=== PATIENT | female | born 2000 | race Caucasian/White ===

== ENCOUNTER 2022-12-16 06:51 | Outpatient (CLI) | payer OTHER ==
[~2022-12-16] VITALS: Ht 147.3 cm; Wt 90.9 kg
[2022-12-16 07:10] VITALS: BP 135/61; PULSE 89; TEMP 98.1
--- NOTE | 2022-12-16 07:42 | NUR ---
0720 PATIENT HERE FOR A VERSION. DISCUSS PROCEDURE WITH PATIENT AND NO QUESTIONS AT THIS TIME. IV STARTED IN LEFT HAND. PATIENT TOLERATES WELL. EFM ON FHT 130 BABY ACTIVE. ONE CONTRACTION ON MONITOR BUT NOT FELT BY PATIENT. 0730 DR CIFUENTES AT BEDSIDE. TALKS WITH BOTH PATIENT AND . NO QUESTIONS. SONO FOR POSITION. BABY IS COMFIRMED BREECH. BRETHINE 0.125 IV GIVEN AND FLUSHED ORDERS BY DR CIFUENTES. 0732 VERSION ATTEMPTED AT THIS TIME BY DR CIFUENTES. NOT SUCCESSFEUL. PATIENT BREATHS THROUGH IT WELL. 0735 ATTEMPT VERSION AGAIN WITH SUCCESS. COMFIRMED WITH SONO.FHT 130 GOOD ACCELERATIONS. BABY VERY ACTIVE. PATIENT RESTING. DENIES NEEDS
[2022-12-16 08:10] VITALS: BP 102/55; PULSE 81
--- NOTE | 2022-12-16 08:30 | NUR ---
0820 PATIENT IS RESTING. DENIES NEEDS. NO CONTRACTIONS NOTED OR FELT. FHT 130 GOOD ACCELS. BABY VERY ACTIVE. WILL WORK ON DISCHARGE INSTRUCTIONS.
[2022-12-16 08:44] VITALS: BP 101/57; PULSE 82
--- NOTE | 2022-12-16 08:45 | NUR ---
0864 ALL DISCHARGE INSTRUCTIONS GIVEN TO PATIENT AND . DENIES NEEDS HOME TO REST
== END 2022-12-16 08:51 | disposition home or self-care (01) ==
LOC: LDRO 06:51 → LDR 06:51 → OB 07:41 → LDRO 08:51 → OB 14:41
DX: O26.893 Other specified pregnancy related conditions, third trimester (principal); Z3A.36 36 weeks gestation of pregnancy
CPT/HCPCS: OP; J3105

== ENCOUNTER 2023-01-05 22:30 | Inpatient (IN) | payer OTHER ==
[~2023-01-05] VITALS: Ht 147.3 cm; Wt 98.2 kg
--- NOTE | 2023-01-05 22:45 | NUR ---
2245 G1L0 39.4 WEEK GEST ADM TO LR4 WITH C/O SROM AT 1535 TODAY. LEAKING LARGE AMOUNT OF CLEAR FLUID. EFM ON. SVE /-3 WITH POSITIVE AMNIOTRACE. ADM ASSESSMENT DONE. 2319 DR HARRISON NOTIFIED AND ADM ORDERS GIVEN.
[2023-01-05] MEDS ORDERED: PRENATAL TABLET PO (22:53)
[2023-01-05] MEDS ORDERED: NATURAL IRON65 MG PO (22:54)
[2023-01-05 23:00] VITALS: BP 136/82; PULSE 93; TEMP 98.2
[2023-01-05 23:50] VITALS: BP 130/68; PULSE 85
--- NOTE | 2023-01-05 23:50 | NUR ---
2350 IV STARTED AND LABS DRAWN. ADM CONSENTS SIGNED.
[2023-01-06] VITALS (65 sets, daily range): BP systolic 91–140; BP diastolic 50–95; PULSE 62–120; TEMP 97.3–98.9
[2023-01-06 00:20] LABS: BASO % 0.3 % (0.0-2.0); EOS # 0.2 K/mm3 (0.0-0.7); EOS % 1.3 % (0.0-4.0); GRAN # 10.8 K/mm3 (1.4-6.5); GRAN % 78.7 % (42.2-75.2); HEMATOCRIT 33.8 % (37.0-47.0); HEMOGLOBIN 10.9 g/dl (12.5-16.0); LYMPH # 1.6 K/mm3 (1.2-3.4); LYMPH % 11.9 % (20.0-51.0); MEAN CELL VOLUME 81 fl (80.0-100.0); MEAN CORPUSCULAR HEMOGLOBIN 26 pg (27-31); MEAN CORPUSCULAR HGB CONC 32 g/dl (33.0-37.0); MEAN PLATELET VOLUME 11.6 fl (7.4-10.4); MONO # 0.9 K/mm3 (0.1-0.6); MONO % 6.6 % (1.7-9.3); PLATELET COUNT 269 K/mm3 (130-400); RED BLOOD COUNT 4.15 M/mm3 (4.10-5.30); REDCELL DISTRIBUTION WIDTH-CV 15.9 % (11.5-14.5)
[2023-01-06 00:26] LABS: ALBUMIN 2.5 gm/dL (3.5-5.0); BILIRUBIN,TOTAL 0.4 mg/dL (0.2-1.2); CALCIUM 9.2 mg/dL (8.4-10.2); CREATININE, serum 0.65 mg/dL (0.57-1.11); POTASSIUM 4.2 mmol/L (3.5-4.5); TOTAL PROTEIN 6.7 gm/dL (6.2-8.1)
--- NOTE | 2023-01-06 01:00 | NUR ---
IV to INT off monitor to get up and move around.
--- NOTE | 2023-01-06 05:00 | NUR ---
tearful with contractions, loving and attentive at bedside.
--- NOTE | 2023-01-06 05:30 | NUR ---
Up to bathroom. 0540 SVE with minimal change noted. Review Pitocin augmentation and amount of time SROM. Pt and spouse verbalize understanding and agree to Pitocin augmentation.
--- NOTE | 2023-01-06 07:00 | NUR ---
DR. CIFUENTES AT BEDSIDE TO CHECK ON PT. PT DECLINES A SVE AT THIS TIME. ALL QUESTIONS ANSWERED. WILL CONTINUE WITH PLAN OF CARE.
--- NOTE | 2023-01-06 10:09 | NUR ---
PT IS LAYING ON RL POSTION ON BED FOR PLACEMENT OF EPIDURAL D/T DISCOMFORT SITTING IN UPRIGHT POSTION. PHYSICIAN GYNECOLOGIST AT BEDSIDE. EFM AND TOCO TRACING INTERMITTENTLY DUE TO MATERNAL POSITIONING. PULSE OX APPLIED TO TRACE MATERNAL HR. BP CYCLING Q 5MINS. TEST DOSE AT 1009. PT REPORTS IMPROVEMENT IN PAIN CONTROL. VITALS WNL AT THIS TIME. RN REMAINS AT BEDSIDE. WILL CONTINUE WITH PLAN ON CARE.
--- NOTE | 2023-01-06 13:25 | NUR ---
[id number] EFM AND TOCO TRACING INTERMITTENTLY DUE TO MATERNAL POSITIONING. MOTHER PLACED INTO FORWARD LEANING INVERSION AND THEN ON RIGHT SIDE FLYING COWGIRL WITH PEANUT BALL. RN AT BEDSIDE ADJUSTING MONITORS NEEDED.
--- NOTE | 2023-01-06 16:10 | NUR ---
DR. CIFUENTES AT BEDSIDE. SVE: /-2. MD EDUCATES PT ON FAILURE TO PROGRESS AND TRANSITIONING PLAN OF CARE TO DELIVERY. PT IS IN AGREEMENT AND ALL QUESTIONS ANSWERED.
--- NOTE | 2023-01-06 16:47 | NUR ---
PT TO OR FOR PRIMARY C/S DUE TO FAILURE TO PROGRESS. 1647, VACUUM USED TO EXTRACT DURING , ONE POP OFF NOTED, BODY DELIVERY AT 1647 OF VIABLE FEMALE . CARE OF TRANSFERED TO NURSERY RN AND CORD GASES OBTAINED.
[2023-01-07 00:30] VITALS: BP 121/58; PULSE 95; TEMP 98.4
[2023-01-07 04:30] VITALS: BP 104/51; PULSE 105; TEMP 98.7
[2023-01-07 06:45] VITALS: BP 120/61; PULSE 99; TEMP 98.2
[2023-01-07] MEDS ORDERED: MOTRIN 800800 MG/TAB PO (08:30)
[2023-01-07] MEDS ORDERED: PERCOCET 325 MG1 TA2 PO (08:31)
--- NOTE | 2023-01-07 12:44 | NUR ---
THIS DIRECTOR TITLE ASSUMES CARE OF PATIENT FROM CLARA GAMBOA RN.
[2023-01-07 13:16] VITALS: BP 109/42; PULSE 62; TEMP 98.3
[2023-01-07 21:00] VITALS: BP 116/67; PULSE 78; TEMP 98
[2023-01-08 08:07] VITALS: BP 112/63; PULSE 85; TEMP 97.9
[2023-01-08 16:00] VITALS: BP 104/64; PULSE 87; TEMP 98.4
[2023-01-08 19:50] VITALS: BP 110/51; PULSE 65; TEMP 98.2
[2023-01-09 08:00] VITALS: BP 139/75; PULSE 107; TEMP 97.8
--- NOTE | 2023-01-09 09:12 | NUR ---
Initial visit; Patient and her thanked [employer] for looking in on them and offering congratulations and God's blessings for the of their daughter. [employer] thanked family for choosing our hospital in which they commented that being a patient here has been a good experience.
== END 2023-01-09 11:55 | disposition home or self-care (01) | DRG 788 ==
LOC: LDRO 22:30 → LDR 23:23 → OB 01-06 18:20
PROVIDERS: ADMIT Obstetrics & Gynecology
PROC: 10D00Z1 Extraction of Products of Conception, Low, Open Approach (ICD-10-PCS; principal; 2023-01-06)
DX: O77.0 Labor and delivery complicated by meconium in amniotic fluid (principal); Z3A.39 39 weeks gestation of pregnancy; Z37.0 Single live birth
CPT/HCPCS: J0171; J0690; J1100; J1885; J2405; J2540; J2590; J2704; J3010; J7120